=== PATIENT | female | born 1960 | race Caucasian/White ===

== ENCOUNTER 2016-12-27 07:46 | Emergency (ER) | payer OTHER ==
--- NOTE | 2016-12-27 09:28 | DIAGNOSTIC IMAGING REPORT ---
PROCEDURE: ABDOMEN/PELVIS WITH CONTRAST CLINICAL INDICATION: ABDOMINAL PAIN TECHNIQUE: 100 ml of Isovue 300 were injected intravenously and axial images were obtained of the abdomen and pelvis with sagittal and coronal reformations. COMPARISON: None. FINDINGS: ABDOMEN: Clear lung bases. Normal sized heart. No hiatal hernia. 13 mm parenchymal cyst in the right kidney. 14 mm low density left adrenal nodule. The liver, gallbladder, left kidney, pancreas and spleen are normal. The abdominal aorta is normal in its course and caliber. Moderate mixed calcified and noncalcified atherosclerosis. No aneurysm. There are no suspicious calcifications, retroperitoneal adenopathy or masses. The stomach, upper bowel loops, and mesentery are normal. Intact anterior abdominal wall. No free fluid or inflammation. PELVIS: 4.7 cm cystic structure associated with the left ovary. Trace free pelvic fluid. Bilobed fundal endometrial cystic change measuring approximately 4.1 by about 3.1 cm. The appendix and pelvic small bowel loops are normal. Moderate amount of stool in the colon and rectum. The right ovary, urinary bladder, and pelvic vessels are normal. No adenopathy, free fluid, or pelvic mass. Severe degenerative disc endplate change at L5-S1. Degenerative facet changes in the lower lumbar spine. IMPRESSION: 1. No evidence of diverticulitis. 2. Prominent left ovarian cyst. This may be a hemorrhagic or rupturing cyst. 3. Bilobed endometrial fluid collection may be result of cervical stenosis, endometrial hyperplasia or less likely intrauterine . Correlate clinically. 4. Probable left adrenal nodule. 5. Discussed with Dr. Hernandez in the emergency room. All CT scans at this facility use dose modulation, iterative reconstruction, and/or weight-based dosing when appropriate to reduce radiation dose to as low as reasonably achievable.
--- NOTE | 2016-12-27 11:49 | ED NURSING NOTES ---
Clinical Report - Nurses [facility] [address] [place] [address] 12/27/2016 7:50 Patient: ILANA HOLLY TRIAGE Triage time 07:58. Acuity: LEVEL 3. Chief Complaint: ABDOMINAL PAIN, NAUSEA and VOMITING. --08:06 Arti Juarez R.N. 07:57 12/27/16. BP: 155/87. HR: 55. RR: 18. O2 saturation: 99%. Temp: 98.7 F. Pain level now: 06/10. --08:06 Arti Juarez R.N. Weight: 67.1 kg stated. Height/Length: 64 inches Per Patient. BMI: 25.4. --08:03 Arti Juarez R.N. Medications Etodolac 400 mg bid. --07:59 Arti Juarez R.N. Citalopram 40 mg daily. --08:00 Arti Juarez R.N. Oxycodone 5 mg prn. --08:00 Arti Juarez R.N. HCTZ 25 MG DAILY. --08:00 Arti Juarez R.N. Bactrim ds bid. --08:01 Arti Juarez R.N. Metoprolol ER 100 mg daily. --08:01 Arti Juarez R.N. Allergies No Known Drug Allergy. --07:59 Arti Juarez R.N. History Arrived by private vehicle. Historian: patient. Onset. (4 days ago). ( cramping, constant, lower left abdominal radiating around to the back.). She has had nausea and vomiting. Last oral intake by patient was (water this morning). PAST MEDICAL HX: ( hypertension). SURGERY HX: Right shoulder surgery. ( Right ankle,). SOCIAL HX: Current every day heavy tobacco smoker- 1 pack per day. No alcohol use or drug use. No recent travel. No known contact with a sick individual. --08:06 Arti Juarez R.N. Interventions ID band on patient. --08:06 Arti Juarez R.N. PHYSICAL ASSESSMENT GENERAL / NEURO / PSYCH: Alert. Oriented X 4. Appears in no acute distress. RESPIRATORY: Respirations not labored. CVS: Normal sinus rhythm noted. GI / : Abdominal tenderness in the left lower quadrant. SKIN: Skin is warm and dry. --08:22 Arti Juarez R.N. NURSING PROGRESS NOTES 08:08 12/27/2016 Site #1 started via IV in the right antecubital space with an 20g angiocath; one attempt. Blood drawn: rainbow set. Labeled in the presence of the patient and sent to the lab. Saline lock flushed with 10 mL saline. --08:18 Arti Juarez R.N. 08:14 12/27/2016 Zofran (Ondansetron HCl) IVP 4 mg given over 2 minute(s) via site #1. --08:19 Arti Juarez R.N. 08:14 12/27/2016 Started bag #1 1000 mL IV Fluids IV NS (Saline); bolus of 1000 mL wide open via site #1 --08:19 Arti Juarez R.N. Patient ID band checked: patient confirmed. Blood samples drawn. Patient gowned. Reassurance given. Patient ID band checked. Clean catch urine collected with return of yellow-colored clear urine; sample sent to lab for urinalysis. Specimen labeled in the presence of the patient. Call light placed in reach. Side rails up. Bed placed in lowest position. --08:22 Arti Juarez R.N. ( Patient resting quietly. Dilaudid given, warnings regarding driving at discharge given. pt. states she will have her SO or a child pick her up. Side rails up, O2 monitoring in place, lights dimmed, warm blanket provided. No further needs at this time.). --08:30 Arti Juarez R.N. late entry - [address] 1000- pt back from CT. --10:21 Arti Juarez R.N. ( pt assisted to the bathroom. placed back on monitor.). --10:21 Arti Juarez R.N. 10:53 12/27/16. BP: 150/77. HR: 45. RR: 18. O2 saturation: 98%. Pain level now: 01/08. --10:53 Arti Juarez R.N. ( pt. resting quietly, awaiting CT results.). --10:53 Arti Juarez R.N. 11:32 12/27/16. BP: 105/51. HR: 70. RR: 18. O2 saturation: 95%. Temp: 98.1 F. --11:35 Arti Juarez R.N. ( resting comfortably.). --11:35 Arti Juarez R.N. 08:35 12/27/2016 Dilaudid (HYDROmorphone HCl PF) IVP 1 mg given over 2 minute(s) via site #1. Allergies verified, confirmed 5 rights and sedative warning given to the patient. IV patency established. IV site checked: no pain, redness, or swelling. IV flushed thoroughly pre- and post-medication administration. --11:57 Arti Juarez R.N. 09:12 12/27/2016 IV Fluids IV NS Discontinued: bag #1 infused. Total amount infused: 1000 mL. IV patency established. IV site checked: no pain, redness, or swelling. IV flushed thoroughly. --12:12 Arti Juarez R.N. DISPOSITION / DISCHARGE 11:58 12/27/2016 Site #1 removed upon discharge. Pressure dressing and bandaid applied. --11:58 Arti Juarez R.N. Departure time: 1210. Condition at departure: improved and stable. Discharge instructions provided and reviewed. Reviewed warnings. Reviewed medication(s). Treatments reviewed. Patient verbalized understanding. Written instructions provided in Azeri. The patient was discharged home and accompanied by parent. She left the Emergency Department ambulatory and via private vehicle. Patient driving. --11:59 Arti Juarez R.N. 11:59 12/27/16. BP: 162/82. HR: 54. RR: 18. O2 saturation: 97%. Pain level now: 01/08. --11:59 Arti Juarez R.N. Locked/Released at 12/27/2016 12:12 by Arti Juarez R.N.
--- NOTE | 2016-12-27 11:49 | ED ORDER SUMMARY ---
..... Patient: ILANA HOLLY OrderSheet [facility] VisitID: [id number] [place] [address] 56y, F Registration Date/Time: 12/27/2016 ORDER SHEET Weight: 67.1 kg (stated) Allergies: No Known Drug Allergy GENERAL ORDERS: CBC w Diff Urgent (08:07 12/27/2016 SStone R.N. per protocol) (8:24 SStone R.N.) CMP Urgent (08:12/27/2016 SStone R.N. per protocol) (8:24 SStone R.N.) UA-Culture if indicated Urgent (08:12/27/2016 SStone R.N. per protocol) (8:24 SStone R.N.) Lipase Urgent (08:12/27/2016 SStone R.N. per protocol) (8:24 SStone R.N.) Old Records (from [facility] [place]) (08:24 12/27/2016 [facility] DO) (8:34 LNations ER Tech1) CT Abd/Pel w Cont (No) (BUN and Cr normal) Urgent [facility]08:44 [facility] (Ack 8:49 LNations ER Tech1) (9:12 LNations ER Tech1) Urine Urgent (09:31 12/27/2016 Jamila OQUENDO) (Ack 9:39 LNations ER Tech1) (12:12 SStone R.N.) MEDICATION ORDERS: IV FLUIDS: IV Saline Lock (08:07 12/27/2016 SStone R.N. per protocol) (Ack 8:19 SStone R.N.) (8:25 SStone R.N.) IV NS : initial bolus 500 mL (1000 mL/hr), then 500 mL/hr for X2 (NOW) (08:[facility] (Ack 8:19 SStone R.N.) (8:19 SStone R.N.) Zofran IV 4 mg (NOW) (08:12/27/2016 [facility]) (8:19 SStone R.N.) Dilaudid IV 1 mg (HIGH ALERT MEDICATION, NOW) (08:25 12/27/2016 Shonda JOYNER) (Ack 8:26 SStone R.N.) (11:57 SStone R.N.) ORDER SHEET NOTES: [Electronically signed by Arti Juarez R.N. (12:12 12/27/2016)] [Electronically signed by Yasmine Hernandez MD (18:07 12/28/2016)] [Electronically locked/signed by Arti Juarez R.N. (12:12 12/27/2016)]
--- NOTE | 2016-12-27 11:49 | ED CLINICAL REPORT ---
Clinical Report - Physicians/Mid Levels [facility] [address] [place] [address] 12/27/2016 7:50 Patient: ILANA HOLLY Time Seen: 08:15. Arrived- By private vehicle. Historian- patient. HISTORY OF PRESENT ILLNESS Chief Complaint: ABDOMINAL PAIN and VOMITING and NAUSEA. At its maximum, severity described as 9 / 10. When seen in the E.D., severity described as 9 / 10. Modifying factors- worsened by movement and food. Relieved by rest. It is described as "pain" and cramping and it is described as located in the left abdomen and left lower quadrant and radiating to the low back. This started about 4 days ago and is still present. It was gradual in onset and has been waxing/waning. The patient has had nausea. She has had vomiting (yesterday). The vomiting has occurred twice. No bilious emesis, blood-tinged emesis or frankly bloody emesis. No diarrhea. No recent travel. Similar symptoms previously: None. Recent medical care: The patient was seen recently at another facility in a clinic. Seen for similar symptoms. Evaluation/treatment: labs and urinalysis. Diagnosis: (pelvic pain unclear etiology; possible UTI). REVIEW OF SYSTEMS No constipation, black stools, hematemesis, difficulty with urination or pain with urination. No urinary frequency, bloody stools, fever, headache or sore throat. No chest pain, difficulty breathing, cough or skin rash. Denies current . The patient has had back pain. All systems otherwise negative, except as recorded above. PAST HISTORY See nurses notes. Hypertension. SURGERY HX: Right shoulder surgery. Right ankle. Medications: Metoprolol ER 100 mg daily. Bactrim ds bid. HCTZ 25 MG DAILY. Oxycodone 5 mg prn. Citalopram 40 mg daily. Etodolac 400 mg bid. Allergies: No Known Drug Allergy. SOCIAL HISTORY Smoker- current status unknown. No alcohol use or drug use. ADDITIONAL NOTES The nursing notes have been reviewed. PHYSICAL EXAM Vital Signs: 12/27/2016 07:57 BP: 155/87. HR: 55. RR: 18. O2 saturation: 99%. Temp: 98.7 F. Pain level now: 9/10. Appearance: Alert. Oriented X3. Patient in mild distress. Eyes: Eyes normal inspection. No scleral icterus or pale conjunctivae. ENT: Pharynx normal. No pharyngeal erythema or tonsillar exudate. The mucous membranes are not dry. Neck: Normal inspection. Neck supple. CVS: Bradycardia. Heart sounds normal. Pulses normal. Respiratory: No respiratory distress. Breath sounds normal. Abdomen: Soft. Moderate tenderness in the left lower quadrant. No mass. No rebound tenderness or guarding. Back: Normal inspection. No CVA tenderness. Skin: Skin warm and dry. Normal skin color. No rash. Normal skin turgor. Extremities: Extremities exhibit normal ROM. No calf tenderness. No lower extremity edema. Neuro: Oriented X 3. No motor deficit. LABS, X-RAYS, AND EKG Abdominal CT: Normal aorta. Normal liver, spleen, pancreas, adrenals and kidneys. A cyst in the left ovary is present. No free fluid. Bladder normal. Appendix normal. No mass. No free fluid. No bony lesion. No diverticulitis. Study type: abdomen and pelvis. Abdominal CT performed with IV contrast. The study was independently viewed by me, interpreted by the radiologist and contemporaneously by me and discussed with the radiologist. Prior studies were not available for comparison. Laboratory Tests: UA-Culture if indicated: (JONTAHON: 12/27/2016 08:00) ( MsgRcvd 12/27/2016 08:41) Final results Test Result Flag Units (Reference) URINE COLOR YELLOW URINE APPEARANCE CLEAR URINE GLUCOSE NEGATIVE (NEGATIVE) URINE KETONE NEGATIVE (NEGATIVE) URINE SPECIFIC GRAVITY 1.015 (1.010-1.030) URINE PH 6.5 (5.0-8.0) URINE PROTEIN NEGATIVE (NEGATIVE) URINE UROBILINOGEN 0.2 EU/dL (0.2-1.0) URINE NITRITE NEGATIVE (NEGATIVE) URINE BLOOD NEGATIVE (NEGATIVE) URINE LEUK ESTERASE NEGATIVE (NEGATIVE) URINE RBC 0-1 rbc/hpf (0-1) URINE WBC 1-3 wbc/hpf (0-1) URINE EPITHELIAL CELLS 0-1 EPI/hpf (0-5) URINE BACTERIA NONE SEEN (NONE SEEN) URINE COMMENT CULT NOT INDICATED URINE CULTURES ARE SET-UP BASED ON THE FOLLOWING CRITERIA:POSITIVE NITRITEPOSITIVE LEUKOCYTE ESTERASEGREATER THAN 10 WHITE BLOOD CELLSMODERATE (2+) OR GREATER BACTERIA Urine: (JONATHON: 12/27/2016 08:00) ( [facility] 12/27/2016 09:59) Final results Test Result Flag Units (Reference) URINE NEGATIVE CBC w Diff: (JONATHON: 12/27/2016 08:15) ( [facility] 12/27/2016 08:52) Final results Test Result Flag Units (Reference) WHITE BLOOD COUNT 9.9 K/uL (4.5-11.5) RED BLOOD COUNT 4.91 M/uL (4.00-5.20) HEMOGLOBIN 13.4 gm/dL (12.0-16.0) HEMATOCRIT 40.6 % (36.0-46.0) MEAN CELL VOLUME 83 fL (80-100) MEAN CORPUSCULAR HGB 27 pg (26-34) MEAN CORPUSCULAR HGB CONC 33 g/dL (31-37) RED CELL DISTRIBUTION WIDTH 15.0 H % (11.6-14.8) PLATELET COUNT 381 K/uL (150-400) NEUTROPHIL % 80.2 H % (50-75) LYMPH % 14.0 L % (25-40) MONO % 4.3 % (3-14) EOSINOPHIL % 1.1 % (0-4) BASOPHIL % 0.4 % (0-2) CMP: (JONATHON: 12/27/2016 08:15) ( [facility] 12/27/2016 08:41) Final results Test Result Flag Units (Reference) GLUCOSE 113 H mg/dL (70-110) BUN 15 mg/dL (7-18) CREATININE 0.9 mg/dL (0.6-1.3) Estimated GFR >60 mL/min Estimated GFR- >60 mL/min Note: Persistent reduction over 3 months in eGFR<60 mL/min/1.73 m2 defines CKD. Patients with eGFR values>=60 mL/min/1.73 m2 may also have CKD if evidence ofpersistent proteinuria. Additional information may be foundat www.kidney.org. SODIUM 139 mmol/L (136-145) POTASSIUM 3.6 mmol/L (3.5-5.1) CHLORIDE 102 mmol/L (98-107) CARBON DIOXIDE 29 mmol/L (21-32) CALCIUM 8.9 mg/dL (8.5-10.1) TOTAL PROTEIN 7.4 g/dL (6.4-8.2) ALBUMIN 3.8 g/dL (3.3-5.0) BILIRUBIN, TOTAL 0.3 mg/dL (0.0-1.0) ALKALINE PHOSPHATASE 67 U/L (46-116) AST (SGOT) 16 U/L (15-37) ALT (SGPT) 22 U/L (12-78) LIPASE 83 U/L (73-393) . Pulse Oximetry: 12/27/2016 07:57 O2 saturation: 99%. (FIO2 - room air). Interpretation: normal. PROGRESS AND PROCEDURES Course of Care: Normal Saline 1 liter IVPB given. Zofran 4 mg IVP given. Dilaudid 1 mg IVP given. David note: Pt was signed out to me at change of shift, pending remainder of work-up (CT abdomen and pelvis). This was done, and showed a L ovarian cyst, but otherwise unremarkable. Pt was feeling better after symptomatic treatment. I have recommended that she follow up with her uniform designer or PCP if sx continue for more than the next 1-2 weeks, to determine further management options. No emergent condition identified. Patient/family counseled. Old medical records ordered. (records from [facility] in [place] ordered). Disposition: Discharged. Condition: stable and improved. CLINICAL IMPRESSION Acute left lower quadrant abdominal pain. Single simple left ovarian cyst. Essential hypertension. INSTRUCTIONS Drink plenty of fluids. Warnings: SEDATIVE MEDICATION: You were given sedative medication during your visit. Do not drive or operate dangerous machinery. GENERAL WARNINGS: Return or contact your physician immediately if your condition worsens or changes unexpectedly, if not improving as expected, or if other problems arise. Your Current Medications: CONTINUE TAKING THE FOLLOWING MEDICATIONS: Bactrim ds bid*. Citalopram 40 mg daily*. Etodolac 400 mg bid*. HCTZ 25 MG DAILY*. Metoprolol ER 100 mg daily*. Oxycodone 5 mg prn*. Prescription Medications: Zofran (orally disintegrating tablets) 4 mg: take 1-2 orally every 6 hours as needed for nausea. Dispense fifteen (15). No refill. Substitution is permissible. Follow-up: Screening today revealed the patient's blood pressure to be in the hypertensive range. The patient should follow up with a primary care provider for blood pressure management. Understanding of the discharge instructions verbalized by patient. (Electronically signed by Yasmine Hernandez MD 12/28/2016 18:07)
--- NOTE | 2016-12-27 11:49 | ED CLINICAL REPORT ---
Clinical Report - Physicians/Mid Levels [facility] [address] [place] [address] 12/27/2016 7:50 Patient: ILANA HOLLY Time Seen: 08:15. Arrived- By private vehicle. Historian- patient. HISTORY OF PRESENT ILLNESS Chief Complaint: ABDOMINAL PAIN and VOMITING and NAUSEA. At its maximum, severity described as 9 / 10. When seen in the E.D., severity described as 9 / 10. Modifying factors- worsened by movement and food. Relieved by rest. It is described as "pain" and cramping and it is described as located in the left abdomen and left lower quadrant and radiating to the low back. This started about 4 days ago and is still present. It was gradual in onset and has been waxing/waning. The patient has had nausea. She has had vomiting (yesterday). The vomiting has occurred twice. No bilious emesis, blood-tinged emesis or frankly bloody emesis. No diarrhea. No recent travel. Similar symptoms previously: None. Recent medical care: The patient was seen recently at another facility in a clinic. Seen for similar symptoms. Evaluation/treatment: labs and urinalysis. Diagnosis: (pelvic pain unclear etiology; possible UTI). REVIEW OF SYSTEMS No constipation, black stools, hematemesis, difficulty with urination or pain with urination. No urinary frequency, bloody stools, fever, headache or sore throat. No chest pain, difficulty breathing, cough or skin rash. Denies current . The patient has had back pain. All systems otherwise negative, except as recorded above. PAST HISTORY See nurses notes. Hypertension. SURGERY HX: Right shoulder surgery. Right ankle. Medications: Metoprolol ER 100 mg daily. Bactrim ds bid. HCTZ 25 MG DAILY. Oxycodone 5 mg prn. Citalopram 40 mg daily. Etodolac 400 mg bid. Allergies: No Known Drug Allergy. SOCIAL HISTORY Smoker- current status unknown. No alcohol use or drug use. ADDITIONAL NOTES The nursing notes have been reviewed. PHYSICAL EXAM Vital Signs: 12/27/2016 07:57 BP: 155/87. HR: 55. RR: 18. O2 saturation: 99%. Temp: 98.7 F. Pain level now: 9/10. Appearance: Alert. Oriented X3. Patient in mild distress. Eyes: Eyes normal inspection. No scleral icterus or pale conjunctivae. ENT: Pharynx normal. No pharyngeal erythema or tonsillar exudate. The mucous membranes are not dry. Neck: Normal inspection. Neck supple. CVS: Bradycardia. Heart sounds normal. Pulses normal. Respiratory: No respiratory distress. Breath sounds normal. Abdomen: Soft. Moderate tenderness in the left lower quadrant. No mass. No rebound tenderness or guarding. Back: Normal inspection. No CVA tenderness. Skin: Skin warm and dry. Normal skin color. No rash. Normal skin turgor. Extremities: Extremities exhibit normal ROM. No calf tenderness. No lower extremity edema. Neuro: Oriented X 3. No motor deficit. LABS, X-RAYS, AND EKG Abdominal CT: Normal aorta. Normal liver, spleen, pancreas, adrenals and kidneys. A cyst in the left ovary is present. No free fluid. Bladder normal. Appendix normal. No mass. No free fluid. No bony lesion. No diverticulitis. Study type: abdomen and pelvis. Abdominal CT performed with IV contrast. The study was independently viewed by me, interpreted by the radiologist and contemporaneously by me and discussed with the radiologist. Prior studies were not available for comparison. Laboratory Tests: UA-Culture if indicated: (JONATHON: 12/27/2016 08:00) ( MsgRcvd 12/27/2016 08:41) Final results Test Result Flag Units (Reference) URINE COLOR YELLOW URINE APPEARANCE CLEAR URINE GLUCOSE NEGATIVE (NEGATIVE) URINE KETONE NEGATIVE (NEGATIVE) URINE SPECIFIC GRAVITY 1.015 (1.010-1.030) URINE PH 6.5 (5.0-8.0) URINE PROTEIN NEGATIVE (NEGATIVE) URINE UROBILINOGEN 0.2 EU/dL (0.2-1.0) URINE NITRITE NEGATIVE (NEGATIVE) URINE BLOOD NEGATIVE (NEGATIVE) URINE LEUK ESTERASE NEGATIVE (NEGATIVE) URINE RBC 0-1 rbc/hpf (0-1) URINE WBC 1-3 wbc/hpf (0-1) URINE EPITHELIAL CELLS 0-1 EPI/hpf (0-5) URINE BACTERIA NONE SEEN (NONE SEEN) URINE COMMENT CULT NOT INDICATED URINE CULTURES ARE SET-UP BASED ON THE FOLLOWING CRITERIA:POSITIVE NITRITEPOSITIVE LEUKOCYTE ESTERASEGREATER THAN 10 WHITE BLOOD CELLSMODERATE (2+) OR GREATER BACTERIA Urine: (JONATHON: 12/27/2016 08:00) ( [facility] 12/27/2016 09:59) Final results Test Result Flag Units (Reference) URINE NEGATIVE CBC w Diff: (JONATHON: 12/27/2016 08:15) ( [facility] 12/27/2016 08:52) Final results Test Result Flag Units (Reference) WHITE BLOOD COUNT 9.9 K/uL (4.5-11.5) RED BLOOD COUNT 4.91 M/uL (4.00-5.20) HEMOGLOBIN 13.4 gm/dL (12.0-16.0) HEMATOCRIT 40.6 % (36.0-46.0) MEAN CELL VOLUME 83 fL (80-100) MEAN CORPUSCULAR HGB 27 pg (26-34) MEAN CORPUSCULAR HGB CONC 33 g/dL (31-37) RED CELL DISTRIBUTION WIDTH 15.0 H % (11.6-14.8) PLATELET COUNT 381 K/uL (150-400) NEUTROPHIL % 80.2 H % (50-75) LYMPH % 14.0 L % (25-40) MONO % 4.3 % (3-14) EOSINOPHIL % 1.1 % (0-4) BASOPHIL % 0.4 % (0-2) CMP: (JONATHON: 12/27/2016 08:15) ( [facility] 12/27/2016 08:41) Final results Test Result Flag Units (Reference) GLUCOSE 113 H mg/dL (70-110) BUN 15 mg/dL (7-18) CREATININE 0.9 mg/dL (0.6-1.3) Estimated GFR >60 mL/min Estimated GFR- >60 mL/min Note: Persistent reduction over 3 months in eGFR<60 mL/min/1.73 m2 defines CKD. Patients with eGFR values>=60 mL/min/1.73 m2 may also have CKD if evidence ofpersistent proteinuria. Additional information may be foundat www.kidney.org. SODIUM 139 mmol/L (136-145) POTASSIUM 3.6 mmol/L (3.5-5.1) CHLORIDE 102 mmol/L (98-107) CARBON DIOXIDE 29 mmol/L (21-32) CALCIUM 8.9 mg/dL (8.5-10.1) TOTAL PROTEIN 7.4 g/dL (6.4-8.2) ALBUMIN 3.8 g/dL (3.3-5.0) BILIRUBIN, TOTAL 0.3 mg/dL (0.0-1.0) ALKALINE PHOSPHATASE 67 U/L (46-116) AST (SGOT) 16 U/L (15-37) ALT (SGPT) 22 U/L (12-78) LIPASE 83 U/L (73-393) . Pulse Oximetry: 12/27/2016 07:57 O2 saturation: 99%. (FIO2 - room air). Interpretation: normal. PROGRESS AND PROCEDURES Course of Care: Normal Saline 1 liter IVPB given. Zofran 4 mg IVP given. Dilaudid 1 mg IVP given. David note: Pt was signed out to me at change of shift, pending remainder of work-up (CT abdomen and pelvis). This was done, and showed a L ovarian cyst, but otherwise unremarkable. Pt was feeling better after symptomatic treatment. I have recommended that she follow up with her educational institution curator or PCP if sx continue for more than the next 1-2 weeks, to determine further management options. No emergent condition identified. Patient/family counseled. Old medical records ordered. (records from [facility] in [place] ordered). Disposition: Discharged. Condition: stable and improved. CLINICAL IMPRESSION Acute left lower quadrant abdominal pain. Single simple left ovarian cyst. Essential hypertension. INSTRUCTIONS Drink plenty of fluids. Warnings: SEDATIVE MEDICATION: You were given sedative medication during your visit. Do not drive or operate dangerous machinery. GENERAL WARNINGS: Return or contact your physician immediately if your condition worsens or changes unexpectedly, if not improving as expected, or if other problems arise. Your Current Medications: CONTINUE TAKING THE FOLLOWING MEDICATIONS: Bactrim ds bid*. Citalopram 40 mg daily*. Etodolac 400 mg bid*. HCTZ 25 MG DAILY*. Metoprolol ER 100 mg daily*. Oxycodone 5 mg prn*. Prescription Medications: Zofran (orally disintegrating tablets) 4 mg: take 1-2 orally every 6 hours as needed for nausea. Dispense fifteen (15). No refill. Substitution is permissible. Follow-up: Screening today revealed the patient's blood pressure to be in the hypertensive range. The patient should follow up with a primary care provider for blood pressure management. Understanding of the discharge instructions verbalized by patient. (Electronically signed by Yasmine Hernandez MD 12/28/2016 18:07)
--- NOTE | 2016-12-27 11:49 | ED ORDER SUMMARY ---
..... Patient: ILANA HOLLY OrderSheet [facility] VisitID: [id number] [place] [address] 56y, F Registration Date/Time: 12/27/2016 ORDER SHEET Weight: 67.1 kg (stated) Allergies: No Known Drug Allergy GENERAL ORDERS: CBC w Diff Urgent (08:07 12/27/2016 SStone R.N. per protocol) (8:24 SStone R.N.) CMP Urgent (08:12/27/2016 SStone R.N. per protocol) (8:24 SStone R.N.) UA-Culture if indicated Urgent (08:12/27/2016 SStone R.N. per protocol) (8:24 SStone R.N.) Lipase Urgent (08:12/27/2016 SStone R.N. per protocol) (8:24 SStone R.N.) Old Records (from [facility] in [place]) (08:24 12/27/2016 [facility] DO) (8:34 LNations ER Tech1) CT Abd/Pel w Cont (No) (BUN and Cr normal) Urgent (08:44 [facility]2016 [facility]) (Ack 8:49 LNations ER Tech1) (9:12 LNations ER Tech1) Urine Urgent (09:31 12/27/2016 Jamila OQUENDO) (Ack 9:39 LNations ER Tech1) (12:12 SStone R.N.) MEDICATION ORDERS: IV FLUIDS: IV Saline Lock (08:07 12/27/2016 SStone R.N. per protocol) (Ack 8:19 SStone R.N.) (8:25 SStone R.N.) IV NS : initial bolus 500 mL (1000 mL/hr), then 500 mL/hr for X2 (NOW) (08:[facility]2016 [facility] (Ack 8:19 SStone R.N.) (8:19 SStone R.N.) Zofran IV 4 mg (NOW) (08:12/27/2016 [facility]) (8:19 SStone R.N.) Dilaudid IV 1 mg (HIGH ALERT MEDICATION, NOW) (08:25 12/27/2016 Shonda JOYNER) (Ack 8:26 SStone R.N.) (11:57 SStone R.N.) ORDER SHEET NOTES: [Electronically signed by Arti Juarez R.N. (12:12 12/27/2016)] [Electronically signed by Yasmine Hernandez MD (18:07 12/28/2016)] [Electronically locked/signed by Arti Juarez R.N. (12:12 12/27/2016)]
--- NOTE | 2016-12-28 18:08 | ED DISCHARGE INSTRUCTIONS ---
Patient: ILANA HOLLY General Instructions [facility] VisitID: [id number] [place] [address] 56y, F Registration Date/Time: 12/27/2016 Acute left lower quadrant abdominal pain. Single simple left ovarian cyst. Essential hypertension. INSTRUCTIONS Drink plenty of fluids. Warnings: SEDATIVE MEDICATION: You were given sedative medication during your visit. Do not drive or operate dangerous machinery. GENERAL WARNINGS: Return or contact your physician immediately if your condition worsens or changes unexpectedly, if not improving as expected, or if other problems arise. Your Current Medications: CONTINUE TAKING THE FOLLOWING MEDICATIONS: Bactrim ds bid*. Citalopram 40 mg daily*. Etodolac 400 mg bid*. HCTZ 25 MG DAILY*. Metoprolol ER 100 mg daily*. Oxycodone 5 mg prn*. Prescription Medications: Zofran (orally disintegrating tablets) 4 mg: take 1-2 orally every 6 hours as needed for nausea. Dispense fifteen (15). No refill. Substitution is permissible. Follow-up: Screening today revealed the patient's blood pressure to be in the hypertensive range. The patient should follow up with a primary care provider for blood pressure management. Understanding of the discharge instructions verbalized by patient. ADDITIONAL INFORMATION Ovarian Cyst The ovary is a small organ located on each side of the uterus. During each menstrual cycle a tiny egg sac forms in the ovary. If the egg is released but does not occur, this sac usually dissolves. Sometimes, the sac may fill with fluid. It then enlarges into a painful cyst. Usually the cyst will rupture or shrink on its own. In either case, the pain gradually goes away over the next 1-3 days. If the cyst does not shrink or rupture, it may cause continued pain. Home Care: Rest in bed and avoid heavy exertion until you are feeling better. Heat to the lower abdomen usually helps (heating pad or hot packs -- a small towel soaked in hot water). You may use acetaminophen (Tylenol) or ibuprofen (Motrin, Advil) to control pain, unless another pain medicine was prescribed. [NOTE: If you have chronic liver or kidney disease or ever had a stomach ulcer or GI bleeding, talk with your doctor before using these medicines.] Follow Up: See your doctor within the next 2-3 days if your pain doesnt improve. Otherwise, follow up with your doctor after your next period or as directed by our staff. Get Prompt Medical Attention if any of the following occur: Pain worsens or fails to respond to the above measures Fever of 100.4F (38C) or higher, or as directed by your healthcare provider Heavy vaginal bleeding (soaking one pad an hour for three hours) You feel weak or dizzy Fainting Passage of a pink or david tissue with menstrual bleeding High Blood Pressure --Established High Blood Pressure (Hypertension) is a chronic disease. The cause is unknown in most cases. It can usually be controlled with lifestyle changes and/or medicines. Symptoms of high blood pressure may include headache, dizziness, visual changes, chest pain and shortness of breath. Sometimes it causes no symptoms at all. However, even if there are no symptoms, untreated high blood pressure increases the risk of heart attack, also known as acute myocardial infarction, or AMI, and stroke. It is a serious health risk and should not be ignored. A normal blood pressure is 120/80 or less. The first (top) number is the "systolic" pressure. The second (bottom) number is the "diastolic" pressure. Hypertension exists when either the top number is 140 or higher, OR the bottom number is 90 or higher on repeated measurements. Home Care: All patients with high blood pressure should do the following to lower their pressure. If you are on medicines, then these methods may reduce or eliminate your need for medicines in the future. Begin a weight loss program if you are overweight. Reduce your salt intake. Avoid high salt foods (olives, pickles, smoked meats, salted potato chips, etc.). Do not add salt to your food at the table. Use only small amounts of salt when cooking. Begin an exercise program. Discuss with your doctor what type of exercise program would be best for you. It doesn't have to be difficult. Even brisk walking for 20 minutes three times a week is a good form of exercise. Avoid medicines which contain heart stimulants. This includes many cold and sinus decongestant pills and sprays as well as diet pills. Check the warnings about hypertension on the label. Stimulants such as amphetamine or cocaine could be lethal for someone with hypertension. Never take these. Limit your caffeine intake or switch to caffeine-free products. Stop smoking. If you are a long-time smoker, this can be hard. Enroll in a stop-smoking program to improve your chance of success. Learning how to handle stress better is an important part of any program to lower blood pressure. Learn about relaxation methods such as meditation, yoga or biofeedback. If medicines were prescribed, take them exactly as directed. Missing doses may cause your blood pressure get out of control. Consider buying an automatic blood pressure machine (available at most pharmacies). Use this to monitor your blood pressure at home and report the results to your doctor. Follow Up: Regular visits to your own physician for blood pressure checks and medicine adjustment is an important part of your care. Make a follow-up appointment as directed by our staff. Get Prompt Medical Attention if any of the following occur: Chest pain or shortness of breath Severe headache Throbbing or rushing sound in the ears Nosebleed Sudden severe abdominal pain Extreme drowsiness, confusion or fainting Dizziness or vertigo (dizziness with spinning sensation) Weakness of an arm or leg or one side of the face Difficulty with speech or vision You have been given the following additional information: Ovarian Cyst Hypertension, Established (Electronically signed by Yasmine Hernandez MD 12/28/2016 18:07)
--- NOTE | 2016-12-28 18:08 | ED MAR SUMMARY ---
..... Medication Administration Record [facility] [address] [place] [address] Patient: ILANA HOLLY Visit ID: [id number] 56y, F Weight: 67.1 kg Height/Length: 64 in BMI: 25.4 ALLERGIES: No Known Drug Allergy Start 08:14 12/27/2016 Arti Juarez R.N., Stop 09:12 12/27/2016 Arti Juarez R.N. Medication Administered: IV NS (SALINE), Dose: IV Fluids, Bolus: 1000 mL wide open, Dispensed: 1000 mL bag, Site: #1 right AC. Medication Ordered: IV NS : initial bolus 500 mL (1000 mL/hr), then 500 mL/hr for X2 (NOW). Given 08:14 12/27/2016 Arti Juarez R.N. Medication Administered: ZOFRAN [IVP] (ONDANSETRON HCL), Dose: 4 mg IVP over 2 minute(s), Site: #1 right AC. Medication Ordered: Zofran IV 4 mg (NOW). Given 08:35 12/27/2016 Arti Juarez R.N. Medication Administered: DILAUDID [IVP] (HYDROMORPHONE HCL PF), Dose: 1 mg IVP over 2 minute(s), Site: #1 right AC. Medication Ordered: Dilaudid IV 1 mg (HIGH ALERT MEDICATION, NOW).
--- NOTE | 2016-12-28 18:08 | ED MAR SUMMARY ---
..... Medication Administration Record [facility] [address] [place] [address] Patient: ILANA HOLLY Visit ID: [id number] 56y, F Weight: 67.1 kg Height/Length: 64 in BMI: 25.4 ALLERGIES: No Known Drug Allergy Start 08:14 12/27/2016 Arti Juarez R.N., Stop 09:12 12/27/2016 Arti Juarez R.N. Medication Administered: IV NS (SALINE), Dose: IV Fluids, Bolus: 1000 mL wide open, Dispensed: 1000 mL bag, Site: #1 right AC. Medication Ordered: IV NS : initial bolus 500 mL (1000 mL/hr), then 500 mL/hr for X2 (NOW). Given 08:14 12/27/2016 Arti Juarez R.N. Medication Administered: ZOFRAN [IVP] (ONDANSETRON HCL), Dose: 4 mg IVP over 2 minute(s), Site: #1 right AC. Medication Ordered: Zofran IV 4 mg (NOW). Given 08:35 12/27/2016 Arti Juarez R.N. Medication Administered: DILAUDID [IVP] (HYDROMORPHONE HCL PF), Dose: 1 mg IVP over 2 minute(s), Site: #1 right AC. Medication Ordered: Dilaudid IV 1 mg (HIGH ALERT MEDICATION, NOW).
--- NOTE | 2016-12-28 18:08 | ED MED RECONCILIATION SUMMARY ---
Patient: ILANA HOLLY Medication Reconciliation Report [facility] VisitID: [id number] [address] [place] [address] 56y, F Registration Date/Time: 12/27/2016 Weight: 67.1 kg Height/Length: 64 in. BMI: 25.4 ALLERGIES: No Known Drug Allergy The patient's Home Medications are listed below: CONTINUE TAKING THE FOLLOWING MEDICATIONS: Bactrim ds bid Citalopram 40 mg daily Etodolac 400 mg bid HCTZ 25 MG DAILY Metoprolol ER 100 mg daily Oxycodone 5 mg prn The source(s) of the original Home Medication information: Not obtained. The following Medications were given to the patient in the Emergency Department: Zofran [IVP] IVP 4 mg, administered: 12/27/2016 8:14:00 AM IV NS IV Fluids bolus 1000 mL wide open, administered: 12/27/2016 8:14:00 AM Dilaudid [IVP] IVP 1 mg, administered: 12/27/2016 8:35:00 AM The following Medications were prescribed to the patient: Zofran (orally disintegrating tablets) 4 mg: take 1-2 orally every 6 hours as needed for nausea. Dispense fifteen (15). No refill. Substitution is permissible. -- Yasmine Hernandez MD
--- NOTE | 2016-12-28 18:08 | ED MED RECONCILIATION SUMMARY ---
Patient: ILANA HOLLY Medication Reconciliation Report [facility] VisitID: [id number] [address] [place] [address] 56y, F Registration Date/Time: 12/27/2016 Weight: 67.1 kg Height/Length: 64 in. BMI: 25.4 ALLERGIES: No Known Drug Allergy The patient's Home Medications are listed below: CONTINUE TAKING THE FOLLOWING MEDICATIONS: Bactrim ds bid Citalopram 40 mg daily Etodolac 400 mg bid HCTZ 25 MG DAILY Metoprolol ER 100 mg daily Oxycodone 5 mg prn The source(s) of the original Home Medication information: Not obtained. The following Medications were given to the patient in the Emergency Department: Zofran [IVP] IVP 4 mg, administered: 12/27/2016 8:14:00 AM IV NS IV Fluids bolus 1000 mL wide open, administered: 12/27/2016 8:14:00 AM Dilaudid [IVP] IVP 1 mg, administered: 12/27/2016 8:35:00 AM The following Medications were prescribed to the patient: Zofran (orally disintegrating tablets) 4 mg: take 1-2 orally every 6 hours as needed for nausea. Dispense fifteen (15). No refill. Substitution is permissible. -- Yasmine Hernandez MD
== END 2016-12-27 12:05 | disposition home or self-care (01) ==
LOC: ED SRH 07:46
DX: N83.202 Unspecified ovarian cyst, left side (principal); R10.32 Left lower quadrant pain; I10 Essential (primary) hypertension; Z79.899 Other long term (current) drug therapy; F17.210 Nicotine dependence, cigarettes, uncomplicated
CPT/HCPCS: 90004; 90100; 92235; 93070; 95059

== ENCOUNTER 2017-01-18 15:11 | Emergency (ER) | payer OTHER ==
--- NOTE | 2017-01-18 18:03 | ED ORDER SUMMARY ---
..... Patient: ILANA HOLLY OrderSheet [facility] VisitID: [id number] [place] [address] 56y, F Registration Date/Time: 01/18/2017 ORDER SHEET Weight: 68.0 kg (stated) Allergies: No Known Drug Allergy GENERAL ORDERS: CBC w Diff Urgent (16:59 01/18/2017 Rey Angel) (Ack 17:08 IJurca ER Tech1) (17:56 EHzaheern R.N.) MEDICATION ORDERS: Oxycodone-APAP PO 10/650 mg (NOW) (15:50 01/18/2017 Jv RJaimeN. verbal order read back to Rey Angel) (15:55 Jv R.N.) IV FLUIDS: ORDER SHEET NOTES: [Electronically signed by Kareen Busch P.A.-C (18:32 01/18/2017)] [Electronically signed by Rayna English R.N. (19:23 01/18/2017)] [Electronically locked/signed by Rayna English R.N. (19:23 01/18/2017)]
--- NOTE | 2017-01-18 18:03 | ED ORDER SUMMARY ---
..... Patient: ILANA HOLLY OrderSheet [facility] VisitID: [id number] [place] [address] 56y, F Registration Date/Time: 01/18/2017 ORDER SHEET Weight: 68.0 kg (stated) Allergies: No Known Drug Allergy GENERAL ORDERS: CBC w Diff Urgent (16:59 01/18/2017 Rey Angel) (Ack 17:08 IJurca ER Tech1) (17:56 EHzaheern R.N.) MEDICATION ORDERS: Oxycodone-APAP PO 10/650 mg (NOW) (15:50 01/18/2017 Jv RJaimeN. verbal order read back to Rey Angel) (15:55 Jv R.N.) IV FLUIDS: ORDER SHEET NOTES: [Electronically signed by Kareen Busch P.A.-C (18:32 01/18/2017)] [Electronically signed by Rayna English R.N. (19:23 01/18/2017)] [Electronically locked/signed by Rayna English R.N. (19:23 01/18/2017)]
--- NOTE | 2017-01-18 18:03 | ED CLINICAL REPORT ---
Clinical Report - Physicians/Mid Levels [facility] [address] [place] [address] 01/18/2017 15:13 Patient: ILANA HOLLY Time Seen: 15:35 Jan 18 2017. Arrived- By private vehicle. HISTORY OF PRESENT ILLNESS Chief Complaint: ABDOMINAL PAIN. It is described as "pain" and it is described as located in the periumbilical area. This started just prior to arrival. The patient has had diarrhea. (patient this morning had laparoscopic oophorectomy, and started using over the last few hours, soaked through multiple pads of one of the abdominal sites. Denies any new pain, has had pain since her surgery this a.m. at 6. She was discharged at 10 AM. She has had positive flatus. Denies any emesis. Denies any fevers.). REVIEW OF SYSTEMS No constipation, hematemesis, difficulty with urination or pain with urination. All systems otherwise negative, except as recorded above. PAST HISTORY Problems: Ovarian Cyst. Abdominal Pain. Hypertension. Additional Surgeries: Shoulder Surgery. SOCIAL HISTORY Smoker- current status unknown. No drug use. ADDITIONAL NOTES The nursing notes have been reviewed. PHYSICAL EXAM Vital Signs: 01/18/2017 15:25 BP: 191/88. HR: 67. RR: 15. O2 saturation: 98%. Temp: 98 F. Pain level now: 10/10. Appearance: Alert. Eyes: Eyes normal inspection. ENT: Ears normal. Neck: Normal inspection. CVS: Normal heart rate and rhythm. Heart sounds normal. Respiratory: No respiratory distress. Abdomen: (Just inferior to the umbilicus there is a small laceration, opening of the wound from likely previous stroke or site, with mild oozing. No surrounding erythema. The lateral incisionsare covered. Well with no wheezing and appear clean dry and intact.). Back: Normal inspection. No CVA tenderness. Skin: Skin warm. Neuro: Disoriented. LABS, X-RAYS, AND EKG Laboratory Tests: CBC w Diff: (JONATHON: 01/18/2017 17:25) ( MsgRcvd 01/18/2017 17:39) Final results Test Result Flag Units (Reference) WHITE BLOOD COUNT 11.3 K/uL (4.5-11.5) RED BLOOD COUNT 4.40 M/uL (4.00-5.20) HEMOGLOBIN 12.2 gm/dL (12.0-16.0) HEMATOCRIT 36.6 % (36.0-46.0) MEAN CELL VOLUME 83 fL (80-100) MEAN CORPUSCULAR HGB 28 pg (26-34) MEAN CORPUSCULAR HGB CONC 33 g/dL (31-37) RED CELL DISTRIBUTION WIDTH 15.6 H % (11.6-14.8) PLATELET COUNT 279 K/uL (150-400) NEUTROPHIL % 90.9 H % (50-75) LYMPH % 7.0 L % (25-40) MONO % 2.1 L % (3-14) EOSINOPHIL % 0 % (0-4) BASOPHIL % 0 % (0-2) . PROGRESS AND PROCEDURES PROCEDURES (Lac: lido with epi 2%, 3 cc with 30 gauge needle, after betadine, then cautery to identify and cauterize the vessel superficial with DR. Carrillo. Small amount of bleeding continued, further betadine used to clean field and 4-0 non absorbable one suture was placed. NO complications.). Course of Care: attempted to contact Dr. BECERRIL, PROV, unable to do so. Examined pt wit DR. Carrillo patient with a superficial bleeding, which was visualized. H&H appears stable. Her pain is appropriate for her recent operation this morning. Patient is otherwise stable. Discussed patient case with Dr. Carrillo. Stable. Pt to f/u outpatient. Patient is stable. Symptoms better. Patient/family counseled. Disposition: Discharged. CLINICAL IMPRESSION Post-operative complication- partial wound dehiscence (bleeding). No infection present. INSTRUCTIONS Drink plenty of fluids. (follow up with surgeon, call in am to inform). (Electronically signed by Kareen Busch P.A.-C 01/18/2017 18:32)
--- NOTE | 2017-01-18 18:03 | ED NURSING NOTES ---
Clinical Report - Nurses [facility] [place] [address] 01/18/2017 15:13 Patient: ILANA HOLLY TRIAGE Triage time 1516 PM. Acuity: LEVEL 4. Chief Complaint: (surgical wound bleeding). Alert. No acute distress. --15:37 Jeniffer Cobb R.N. 15:25 01/18/17. BP: 191/88 (regular adult cuff) taken on the left arm, via an automated monitor, while lying. HR: 67. RR: 15. O2 saturation: 98%. Temp: 98 F (oral). Pain level now: 07/10. --15:37 Jeniffer Cobb R.N. Weight: 68 kg stated. Height/Length: 64 inches Per Patient. BMI: 25.8. --15:26 Jeniffer Cobb R.N. Medications Citalopram 40 mg daily. Etodolac 400 mg bid. HCTZ 25 MG DAILY. Metoprolol ER 100 mg daily. Oxycodone 5 mg prn. --19:22 Rayna English R.N. Medication/allergy information source: the patient. --15:37 Jeniffer Cobb R.N. Medication/allergy information source: other. --19:23 Rayna English R.N. Allergies No Known Drug Allergy. --19:22 Rayna English R.N. History Arrived by private vehicle. Historian: patient. Accompanied by family. Primary physician (Dr. Mancilla, Dr. knox- (surgery)). ( Pt states having surgery this morning for removal of both ovaries at [place] with Dr. Knox, was discharged at 1030 a.m. Pt states having to change dressings (mid-umbilical) incision multiple times, unable to stop the bleeding. Called Dr. Knox office and was told to come to the ED for evaluation). This started today. She has had abdominal pain. She has had abnormal bleeding (incisional bleeding). No spotting, hematuria, flank pain or fever. Treatment PERFORMING ARTS TECHNICIANS: None. PAST MEDICAL HX: Immunizations: up-to-date. SOCIAL HX: Heavy tobacco smoker- less than 1 pack per day. No alcohol use or drug use. No infectious disease exposure. ABUSE ASSESSMENT: No report of abuse. SELF HARM ASSESSMENT: A self harm assessment was performed. The patient answered "no" to the question "Do you have thoughts of harming or killing yourself?" and "Have you recently had thoughts about harming or killing others?". FALL RISK ASSESSMENT: Fall risk assessment completed. No fall risk identified. NUTRITIONAL RISK ASSESSMENT: The nutritional risk assessment revealed no deficiencies. FUNCTIONAL ASSESSMENT: Functional assessment: no impairments noted. LEARNING NEEDS ASSESSMENT: The learning needs assessment revealed no barriers. SKIN INTEGRITY ASSESSMENT: Skin integrity risk assessment completed. No skin integrity risk identified. --15:37 Jeniffer Cobb R.N. Interventions ID band on patient. --15:37 Jeniffer Cobb R.N. PHYSICAL ASSESSMENT Ambulatory to room. ( Pt post-op from this morning, lap incisions x3, mid-umbilical incision bleeding, dressing placed and pressure placed.). GENERAL / NEURO / PSYCH: Alert. Oriented X 4. Appears in no acute distress. HEENT: Mucous membranes are pink. RESPIRATORY: Respirations not labored. Breath sounds within normal limits. CVS: Capillary refill less than 2 seconds. GI / : Abdomen soft and nontender. Bowel sounds within normal limits. Vaginal bleeding. Vaginal discharge. SKIN: Skin is warm and dry. --15:38 Jeniffer Cobb R.N. NURSING PROGRESS NOTES The initial plan of care for this patient has been created This plan of care was discussed with the patient. Patient gowned. Warming measures: blanket applied. Reassurance given. Patient identifiers checked. Call light placed in reach. Side rails up x 1. Bed placed in lowest position. Brakes of bed on. --15:38 Jeniffer Cobb R.N. 15:55 01/18/2017 Oxycodone-APAP (Oxycodone-Acetaminophen) PO 5/325 mg Tablets 2 tab given. Allergies verified, confirmed 5 rights and sedative warning given to the patient and patient's family. --15:55 Jeniffer Cobb R.N. Reassurance given. ( Pt's wound dressed 4x4 then pressure dressing applied and wrapped with HASEEB. Percocet given for pain with good results. Family at bedside, comfort provided. Gram crackers and water given. Will monitor). --16:23 Jeniffer Cobb R.N. Reassurance given. --16:28 Jeniffer Cobb R.N. 16:23 01/18/17. BP: 148/80. HR: 74. RR: 14. O2 saturation: 100% on room air. Pain level now: 03/10. --16:28 Jeniffer Cobb R.N. Reassurance given. The patient is calm and resting quietly. Overall patient status is the same- she states feels the same. Call light placed in reach. Side rails up x 1. Bed placed in lowest position. Brakes of bed on. --17:57 Jeniffer Cobb R.N. 17:54 01/18/17. BP: 129/61 taken while lying. HR: 57. RR: 18. O2 saturation: 100%. Temp: 98.3 F (oral). Pain level now: 05/10. --17:57 Jeniffer Cobb R.N. ( Dr. Carrillo was at bedside, procedure done of cauterizing the umbilical incision which was bleeding, pt tolerated well. Awaiting on labs. Comfort provided). --18:00 Jeniffer Cobb R.N. 18:20. The patient is resting quietly. Overall patient status is improved- she states feels better. SKIN: Skin is warm and dry. --19:21 Rayna English R.N. DISPOSITION / DISCHARGE Departure time: 1819. Condition at departure: improved and stable. No learning barriers present. Discharge instructions provided and reviewed with the patient. Patient verbalized understanding. Written instructions provided in Japanese. The patient was discharged home and accompanied by family. She left the Emergency Department ambulatory and via private vehicle. Family member driving. FALL RISK ASSESSMENT: Fall risk assessment completed. No fall risk identified. --19:20 Rayna English R.N. 18:20 01/18/17. BP: 138/71. HR: 52. RR: 16. O2 saturation: 95% on room air. Temp: 98.2 F (oral). Pain level now: 03/10. --19:20 Rayna English R.N. Locked/Released at 01/18/2017 19:23 by Rayna English R.N.
--- NOTE | 2017-01-18 19:23 | ED MAR SUMMARY ---
..... Medication Administration Record [facility] [address] [place] [address] Patient: ILANA HOLLY Visit ID: [id number] 56y, F Weight: 68.0 kg Height/Length: 64 in BMI: 25.8 ALLERGIES: No Known Drug Allergy Given 15:55 01/18/2017 Jeniffer Cobb RBrittny Medication Administered: OXYCODONE-APAP [PO] (OXYCODONE-ACETAMINOPHEN), Dose: 2 tab 5/325 mg Tablets PO. Medication Ordered: Oxycodone-APAP PO 10/650 mg (NOW).
--- NOTE | 2017-01-18 19:23 | ED DISCHARGE INSTRUCTIONS ---
Patient: ILANA HOLLY General Instructions [facility] VisitID: [id number] [address] [place] [address] 56y, F Registration Date/Time: 01/18/2017 Post-operative complication- partial wound dehiscence (bleeding). No infection present. INSTRUCTIONS Drink plenty of fluids. (follow up with surgeon, call in am to inform). (Electronically signed by Kareen Busch P.A.-C 01/18/2017 18:32)
--- NOTE | 2017-01-18 19:23 | ED MED RECONCILIATION SUMMARY ---
Patient: ILANA HOLLY Medication Reconciliation Report [facility] VisitID: [id number] [address] [place] [address] 56y, F Registration Date/Time: 01/18/2017 Weight: 68.0 kg Height/Length: 64 in. BMI: 25.8 ALLERGIES: No Known Drug Allergy The patient's Home Medications are listed below: THE FOLLOWING MEDICATIONS NEED TO BE RECONCILED: Citalopram 40 mg daily Etodolac 400 mg bid HCTZ 25 MG DAILY Metoprolol ER 100 mg daily Oxycodone 5 mg prn The source(s) of the original Home Medication information: patient other The following Medications were given to the patient in the Emergency Department: Oxycodone-APAP [PO] PO 2 tab, administered: 01/18/2017 3:55:00 PM The following Medications were prescribed to the patient: None.
--- NOTE | 2017-01-18 19:23 | ED MAR SUMMARY ---
..... Medication Administration Record [facility] [address] [place] [address] Patient: ILANA HOLLY Visit ID: [id number] 56y, F Weight: 68.0 kg Height/Length: 64 in BMI: 25.8 ALLERGIES: No Known Drug Allergy Given 15:55 01/18/2017 Jeniffer Cobb RBrittny Medication Administered: OXYCODONE-APAP [PO] (OXYCODONE-ACETAMINOPHEN), Dose: 2 tab 5/325 mg Tablets PO. Medication Ordered: Oxycodone-APAP PO 10/650 mg (NOW).
--- NOTE | 2017-01-18 19:23 | ED DISCHARGE INSTRUCTIONS ---
Patient: ILANA HOLLY General Instructions [facility] VisitID: [id number] [address] [place] [address] 56y, F Registration Date/Time: 01/18/2017 Post-operative complication- partial wound dehiscence (bleeding). No infection present. INSTRUCTIONS Drink plenty of fluids. (follow up with surgeon, call in am to inform). (Electronically signed by Kareen Busch P.A.-C 01/18/2017 18:32)
--- NOTE | 2017-01-18 19:23 | ED MED RECONCILIATION SUMMARY ---
Patient: ILANA HOLLY Medication Reconciliation Report [facility] VisitID: [id number] [address] [place] [address] 56y, F Registration Date/Time: 01/18/2017 Weight: 68.0 kg Height/Length: 64 in. BMI: 25.8 ALLERGIES: No Known Drug Allergy The patient's Home Medications are listed below: THE FOLLOWING MEDICATIONS NEED TO BE RECONCILED: Citalopram 40 mg daily Etodolac 400 mg bid HCTZ 25 MG DAILY Metoprolol ER 100 mg daily Oxycodone 5 mg prn The source(s) of the original Home Medication information: patient other The following Medications were given to the patient in the Emergency Department: Oxycodone-APAP [PO] PO 2 tab, administered: 01/18/2017 3:55:00 PM The following Medications were prescribed to the patient: None.
== END 2017-01-18 18:20 | disposition home or self-care (01) ==
LOC: ED SRH 15:11
DX: T81.31XA Disruption of external operation (surgical) wound, not elsewhere classified, initial encounter (principal); I10 Essential (primary) hypertension
CPT/HCPCS: 90074; 95059